=== PATIENT | female | born 1980 | race Caucasian/White ===

== ENCOUNTER 2017-02-06 09:41 | Emergency (ER) | payer SELFPAY ==
[~2017-02-06] VITALS: Ht 162.6 cm; Wt 67.6 kg
[2017-02-06] MEDS ORDERED: NAPROSYN500 MG PO (11:16)
[2017-02-06 11:25] VITALS: BP 132/88
== END 2017-02-06 11:26 | disposition home or self-care (01) ==
LOC: EME 09:41
DX: J02.9 Acute pharyngitis, unspecified (principal); R20.0 Anesthesia of skin; R20.2 Paresthesia of skin; Z82.3 Family history of stroke
CPT/HCPCS: 70360; 99281; 99283